=== PATIENT | female | born 2000 | race Two or more races ===

== ENCOUNTER 2025-02-08 13:41 | Emergency (ER) | payer MEDICAID ==
[~2025-02-08] VITALS: Ht 162.6 cm; Wt 66.0 kg
[2025-02-08 13:50] VITALS: O2SAT 99
[2025-02-08 15:08] LABS: BASOPHILS % 0.4 % (0.0-2.0); EOSINOPHILS % 1.1 % (0.0-5.0); HEMATOCRIT. 34.6 % (36.0-48.0); HEMOGLOBIN. 11.6 g/dL (12.0-16.0); LYMPHOCYTES % 19.7 % (20.0-50.0); MEAN PLATELET VOLUME 8.3 fl (7.4-10.4); MONOCYTES % 7.9 % (2.0-8.0); NEUTROPHILS % 70.9 % (40.0-76.0); PLATELET 210 x1000/uL (130-400); RED BLOOD CELL COUNT 3.97 mill/uL (4.2-5.4); RED CELL DISTRIBUTION WIDTH 14.0 % (11.6-14.6)
[2025-02-08 15:21] LABS: INR 1.0
[2025-02-08 15:23] LABS: CREATININE 0.6 mg/dL (0.6-1.0); UREA NITROGEN BLOOD < 5 mg/dL (9-23)
[2025-02-08 15:25] LABS: ASPARTATE AMINOTRANSFERASE 15 IU/L (<34); BILIRUBIN DIRECT < 0.1 mg/dL (<=3.0); BILIRUBIN TOTAL 0.3 mg/dL (0.1-1.0)
[2025-02-08 15:26] LABS: HCG SCREEN POSITIVE; PROTEIN TOTAL 7.4 g/dL (6.0-8.3)
[2025-02-08 15:53] LABS: CLARITY URINE CLEAR (CLEAR); COLOR URINE YELLOW (YELLOW); GLUCOSE URINE NEGATIVE (NEGATIVE); KETONES URINE NEGATIVE (NEGATIVE); LEUKOCYTE ESTERASE URINE TRACE (NEGATIVE); NITRITE URINE NEGATIVE (NEGATIVE); OCCULT BLOOD URINE 3+ (NEGATIVE); PH URINE 7.5 (4.5-8.0); PROTEIN URINE NEGATIVE (NEGATIVE); SPECIFIC GRAVITY URINE 1.003 (1.005-1.030); UROBILINOGEN URINE 0.2 E.U./dL (0.2-1.0)
[2025-02-08 15:54] LABS: B-HCG QUANTITATIVE 12623 mIU/mL (<6)
[2025-02-08 16:08] LABS: BACTERIA URINE 2+; SQUAMOUS EPITHELIAL CELL URINE 1+ /lpf (RARE/1+)
[2025-02-08 16:09] LABS: RBC URINE 15-25 /hpf (0-2); WBC URINE 0-2 /hpf (0-2)
[2025-02-08] MEDS ORDERED: CEFP200T13 MT (18:38)
[2025-02-08 18:39] VITALS: BP 121/74; PULSE 90; RESP 18; TEMP 36.9; O2SAT 99
== END 2025-02-08 19:09 | disposition home or self-care (01) ==
LOC: ER 13:41
DX: O02.1 Missed abortion (principal); O23.41 Unspecified infection of urinary tract in pregnancy, first trimester; N39.0 Urinary tract infection, site not specified; Z3A.09 9 weeks gestation of pregnancy
CPT/HCPCS: 36415; 76801; 80048; 80076; 81003; 81025; 83735; 84702; 84703; 85025; 86850; 86900; 99284